=== PATIENT | male | born 1965 | race African-American/Black ===

== ENCOUNTER 2021-03-24 14:58 | Inpatient (IN) ==
[2021-03-24] MEDS ORDERED: guaiFENesin/DM ER 600-30 MG TABLET PO PRN (16:18)
[2021-03-24] MEDS ORDERED: MORPHINE 4 MG/1 ML VIAL IV PRN (16:18)
[2021-03-24] MEDS ORDERED: hydrALAZINE 20 MG/1 ML VIAL IV PRN (16:18)
[2021-03-24] MEDS ORDERED: diphenhydrAMINE CAP 25 MG CAPSULE PO PRN (16:18)
[2021-03-24] MEDS ORDERED: CALCIUM CARBONATE CHEW 500 MG TABLET PO PRN (16:18)
[2021-03-24] MEDS ORDERED: MAGNESIUM SULF RIDER 4 GM/100 ML PREMIX IV PRN (16:18)
[2021-03-24] MEDS ORDERED: LACTULOSE 20 GM/30 ML UDCUP PO PRN (16:18)
[2021-03-24] MEDS ORDERED: ONDANSETRON 4 MG/2 ML VIAL IV PRN (16:18)
[2021-03-24] MEDS ORDERED: ALUMINUM/MAGNES/SIMETH MAX STR 30 ML UDCUP PO PRN (16:18)
[2021-03-24] MEDS ORDERED: ZALEPLON 5 MG CAPSULE PO PRN (16:18)
[2021-03-24] MEDS ORDERED: MAGNESIUM SULF RIDER 2 GM/50 ML PREMIX IV PRN (16:18)
[2021-03-24] MEDS ORDERED: SIMETHICONE CHEW 125 MG TABLET PO PRN (16:18)
[2021-03-24] MEDS ORDERED: ACETAMINOPHEN 325 MG TABLET PO PRN (16:18)
[2021-03-24] MEDS ORDERED: BISACODYL 5 MG TABLET PO PRN (16:18)
[2021-03-24] MEDS ORDERED: LIDOCAINE 1% 20 ML VIAL ONE (16:23)
[2021-03-24] MEDS: ENOXAPARIN 30 MG/0.3 ML SYRINGE SUBCUT SCH (18:55)
[2021-03-25 03:58] LABS: Basophils # 0.1 10*3/uL (0.0-0.2); Basophils % 0.9 % (0.0-0.8); Eosinophils # 0.7 10*3/uL (0.0-0.87); Eosinophils % 9.4 % (0.00-10.9); Hematocrit 35.9 VOL% (42.0-52.0); Immature Granulocytes % 0.4 %; Immature Granulocytes Absolute 0.03 #; Lymphocytes # 0.3 10*3/uL (1.4-4.0); Lymphocytes % 4.2 % (21.2-54.2); Mean Corpuscular HGB Conc 30.6 GM/DL (32-36); Mean Corpuscular Volume 92.5 FL (87-102); Mean Platelet Volume 10.1 FL (9.6-12.0); Monocytes % 10.3 % (1.7-12.7); Neutrophils % 74.8 % (38.7-73.9); Red Blood Count 3.88 MC/CUMM (3.8-5.5); Red Cell Distribution Width 13.7 % (9.3-17.3); White Blood Count 7.4 T/CUMM (4-12)
[2021-03-25 04:07] LABS: Platelet Count 88 T/CUMM (130-400)
[2021-03-25 04:17] LABS: Albumin 2.1 G/DL (3.4-5.0); Bilirubin,Total 0.8 MG/DL (0.2-1.0); Calcium 8.5 MG/DL (8.5-10.1); Osmolality,Calculated 289.5 MOS/KG (273-304); Potassium 4.7 MMOL/L (3.5-5.1); Risk Ratio 3.26; Total Protein 5.4 G/DL (6.4-8.2)
[2021-03-25 04:50] LABS: Eosinophils 15 % (0-10); Hypochromasia 1+; Lymphocytes 2 % (20-55); Segmented Neutrophils 70 % (50-85); Total Cells Counted 100
[2021-03-25 04:51] LABS: Microcytosis Slight; Ovalocytes Slight; Platelet Estimate Decreased
[2021-03-25] MEDS: LEVOTHYROXINE 200 MCG TABLET PO SCH (06:06)
[2021-03-25] MEDS: LEVOTHYROXINE 50 MCG TABLET PO SCH (06:06)
[2021-03-25] MEDS: PANTOPRAZOLE 40 MG TABLET PO SCH ×2 (09:08→10:12)
[2021-03-25] MEDS: ISOSORBIDE MONONITRATE 30 MG TABLET PO SCH ×2 (09:08→10:12)
[2021-03-25] MEDS: amLODIPine 10 MG TABLET PO SCH ×2 (09:08→10:12)
[2021-03-25] MEDS: ATORVASTATIN 40 MG TABLET PO SCH ×2 (09:08→10:12)
[2021-03-25] MEDS: ASPIRIN EC 81 MG TABLET PO SCH ×2 (09:08→10:12)
[2021-03-25] MEDS: ENOXAPARIN 30 MG/0.3 ML SYRINGE SUBCUT SCH (16:14)
[2021-03-26 05:53] LABS: Basophils # 0.1 10*3/uL (0.0-0.2); Basophils % 0.7 % (0.0-0.8); Eosinophils # 0.8 10*3/uL (0.0-0.87); Eosinophils % 9.5 % (0.00-10.9); Hematocrit 33.5 VOL% (42.0-52.0); Hemoglobin 10.3 GM/DL (14.0-18.0); Immature Granulocytes % 0.4 %; Immature Granulocytes Absolute 0.03 #; Lymphocytes # 0.3 10*3/uL (1.4-4.0); Lymphocytes % 3.5 % (21.2-54.2); Mean Corpuscular HGB Conc 30.7 GM/DL (32-36); Mean Corpuscular Volume 93.3 FL (87-102); Mean Platelet Volume 10.5 FL (9.6-12.0); Monocytes % 10.5 % (1.7-12.7); Neutrophils % 75.4 % (38.7-73.9); Platelet Count 113 T/CUMM (130-400); Red Blood Count 3.59 MC/CUMM (3.8-5.5); Red Cell Distribution Width 13.5 % (9.3-17.3)
[2021-03-26 06:24] LABS: Eosinophils 17 % (0-10); Hypochromasia 1+; Lymphocytes 3 % (20-55); Microcytosis Slight; Ovalocytes Slight; Polychromasia Slight; Segmented Neutrophils 74 % (50-85); Total Cells Counted 100
[2021-03-26 06:25] LABS: Platelet Estimate Adequate
[2021-03-26 06:26] LABS: Calcium 8.4 MG/DL (8.5-10.1); Osmolality,Calculated 294.8 MOS/KG (273-304); Potassium 4.8 MMOL/L (3.5-5.1)
[2021-03-26] MEDS: LEVOTHYROXINE 200 MCG TABLET PO SCH (06:44)
[2021-03-26] MEDS: LEVOTHYROXINE 50 MCG TABLET PO SCH (06:44)
[2021-03-26] MEDS: ISOSORBIDE MONONITRATE 30 MG TABLET PO SCH (09:33)
[2021-03-26] MEDS: amLODIPine 10 MG TABLET PO SCH (09:34)
[2021-03-26] MEDS ORDERED: DIAZEPAM 5 MG TABLET PO ONE (09:42)
[2021-03-26] MEDS ORDERED: VANCOMYCIN 500 MG VIAL IRRIG ONE (09:42)
[2021-03-26] MEDS ORDERED: diphenhydrAMINE CAP 50 MG CAPSULE PO ONE (09:42)
[2021-03-26] MEDS ORDERED: VANCOMYCIN INJ 1,000 MG in SODIUM CHLORIDE 0.9% 250 ML IV ONE (09:42)
[2021-03-26] MEDS ORDERED: diphenhydrAMINE 50 MG/1 ML VIAL IV ONE (09:43)
[2021-03-26] MEDS ORDERED: FAMOTIDINE 20 MG/2 ML VIAL IV ONE (09:43)
[2021-03-26] MEDS ORDERED: methylPREDNISolone SOD SUC 125 MG/2 ML VIAL IV ONE (09:43)
[2021-03-26] MEDS ORDERED: SODIUM CHLORIDE 0.9% 1,000 ML IV SCH (10:00)
[2021-03-26] MEDS: ASPIRIN EC 81 MG TABLET PO SCH ×2 (10:44→14:29)
[2021-03-26] MEDS: PANTOPRAZOLE 40 MG TABLET PO SCH ×2 (10:45→14:27)
[2021-03-26] MEDS: ATORVASTATIN 40 MG TABLET PO SCH ×2 (10:45→14:28)
[2021-03-26] MEDS ORDERED: HEPARIN/NACL 0.9% 2 UNITS/ML 1,000 UNIT/500 ML BAG IV ONE (11:06)
[2021-03-26] MEDS ORDERED: LIDOCAINE 1% 20 ML VIAL ONE (11:06)
[2021-03-26] MEDS ORDERED: TISSUE ADHESIVE 1 EACH APPLICATOR TOP ONE (11:06)
[2021-03-26] MEDS ORDERED: VANCOMYCIN 500 MG VIAL ONE (11:06)
[2021-03-26] MEDS ORDERED: MIDAZOLAM 2 MG/2 ML VIAL ONE (11:38)
[2021-03-26] MEDS ORDERED: fentaNYL 100 MCG/2 ML VIAL ONE (11:38)
[2021-03-26] MEDS ORDERED: SEVELAMER CARBONATE 800 MG TABLET PO SCH (15:00)
[2021-03-26] MEDS: SEVELAMER CARBONATE 800 MG TABLET PO SCH (16:40)
[2021-03-26] MEDS: carvediloL 6.25 MG TABLET PO SCH (20:40)
[2021-03-27 05:21] LABS: Hematocrit 35.7 VOL% (42.0-52.0); Hemoglobin 10.8 GM/DL (14.0-18.0); Immature Granulocytes % 0.6 %; Immature Granulocytes Absolute 0.04 #; Lymphocytes # 0.1 10*3/uL (1.4-4.0); Lymphocytes % 1.5 % (21.2-54.2); Mean Corpuscular HGB Conc 30.3 GM/DL (32-36); Mean Platelet Volume 11.3 FL (9.6-12.0); Monocytes % 1.7 % (1.7-12.7); Neutrophils % 96.2 % (38.7-73.9); Platelet Count 125 T/CUMM (130-400); Red Blood Count 3.84 MC/CUMM (3.8-5.5); Red Cell Distribution Width 13.2 % (9.3-17.3); White Blood Count 6.7 T/CUMM (4-12)
[2021-03-27 05:41] LABS: Calcium 8.4 MG/DL (8.5-10.1); Osmolality,Calculated 291.8 MOS/KG (273-304); Potassium 5.2 MMOL/L (3.5-5.1)
[2021-03-27 05:52] LABS: Anisocytosis 2+; Band Neutrophils 3 % (0-10); Lymphocytes 2 % (20-55); Platelet Estimate Adequate; Segmented Neutrophils 94 % (50-85); Total Cells Counted 100
[2021-03-27 05:53] LABS: Basophilic Stippling Slight; Burr Cells Few; Hypochromasia Slight; Macrocytosis 1+; Tear Drop Cells Few
[2021-03-27] MEDS: LEVOTHYROXINE 50 MCG TABLET PO SCH (06:19)
[2021-03-27] MEDS: LEVOTHYROXINE 200 MCG TABLET PO SCH (06:19)
[2021-03-27 07:28] VITALS: BP 146/69
[2021-03-27] MEDS: SEVELAMER CARBONATE 800 MG TABLET PO SCH ×2 (08:22→12:28)
[2021-03-27] MEDS: amLODIPine 10 MG TABLET PO SCH (08:23)
[2021-03-27] MEDS: ASPIRIN EC 81 MG TABLET PO SCH (08:23)
[2021-03-27] MEDS: carvediloL 6.25 MG TABLET PO SCH (08:23)
[2021-03-27] MEDS: ISOSORBIDE MONONITRATE 30 MG TABLET PO SCH (08:24)
[2021-03-27] MEDS: ATORVASTATIN 40 MG TABLET PO SCH (08:24)
[2021-03-27] MEDS: PANTOPRAZOLE 40 MG TABLET PO SCH (08:24)
== END 2021-03-27 13:10 | disposition home or self-care (01) | DRG 242 ==
LOC: N.ED 14:58 → N.EDINP 16:22 → N.CC 16:37
PROVIDERS: ADMIT Internal Medicine Cardiovascular Disease; ATTEND Internal Medicine Cardiovascular Disease